=== PATIENT | female | born 1940 | race Caucasian/White ===

== ENCOUNTER 2021-08-21 19:18 | Emergency (ER) | payer MEDICARE, SELFPAY ==
[2021-08-21 19:27] VITALS: BP 148/89; PULSE 102; RESP 16; TEMP 37.3; O2SAT 100
[2021-08-22 00:57] LABS: Basophils Absolute Auto 0.1 K/mm3 (0.0-0.1); Basophils Percent Auto 0.4 % (0.2-1.2); Eosinophils Percent Auto 0.2 % (0-4.4); Hematocrit 39.4 % (37.0-47.0); Hemoglobin 12.7 g/dL (12.0-15.0); Immature Granulocyte Absolute 0.06 K/mm3 (0.00-0.031); Immature Granulocyte Percent A 0.5 % (0-0.5); Lymphocytes Absolute Auto 2.47 K/mm3 (0.9-3.2); Lymphocytes Percent Auto 19.2 % (18.3-44.2); Mean Corpuscular HGB Conc 32.2 g/dl (32-36); Mean Corpuscular Hemoglobin 30.2 pg (26-34); Mean Corpuscular Volume 93.8 fl (80-100); Monocytes Absolute Auto 1.2 K/mm3 (0.1-0.6); Monocytes Percent Auto 9.5 % (2.6-8.5); Neutrophils Absolute Auto 9.1 K/mm3 (1.3-6.7); Neutrophils Percent Auto 70.2 % (45.5-73.1); Platelet Count Result 263 k/mm3 (150-375); Red Cell Distribution Width 13.5 % (11.5-14.5); White Blood Count 12.9 K/mm3 (4.5-10.0)
[2021-08-22 01:11] LABS: Anion Gap 9 mmol/L (8-16); Blood Urea Nitrogen 17 mg/dL (7-17); CRP 7.8 mg/dL (<1.0); Calcium 9.9 mg/dL (8.4-10.2); Carbon Dioxide 35 mmol/L (22-30); Chloride 95 mmol/L (98-107); Estimated CRCL calculation 43 ml/min; Estimated Glomerular Filt Rate 43; Glucose 131 mg/dL (65-110); Sodium 139 mmol/L (137-145); Uric Acid 10.5 mg/dL (2.5-7.5)
--- NOTE | 2021-08-22 01:26 | ED.EXTPRO ---
HPI - Extremity Problem General Chief complaint: Extremity Problem,Nontraumatic Stated complaint: feet pain Time Seen by Provider: 08/21/21 22:24 Source: patient and family Mode of arrival: ambulatory Limitations: no limitations History of Present Illness HPI Narrative: 81-year-old with a history of gout, hypertension here with complaints of pain , swelling and redness to the left foot for past 2 days. She denies any fever or chills. No history of trauma. She states the redness is markedly reduced from yesterday. Complaint: extremity pain Onset (ago): day(s) (2) Pain Consistency: constant Location: left Quality: aching Radiation: none Relieving factors: nothing Exacerbating factors: nothing Associated symptoms: denies other symptoms Related Data Home Medications Medication Instructions Recorded Confirmed apixaban 5 mg tablet 5 mg PO BID 07/04/20 08/08/21 cholecalciferol (vitamin D3) 25 25 mcg PO DAILY 07/04/20 08/08/21 mcg (1,000 unit) capsule cyanocobalamin (B12)-cobamamide lozenge SUBLINGUAL 07/04/20 08/08/21 5,000 mcg-100 mcg sublingual lozenge metoprolol succinate 100 mg 100 mg PO DAILY 07/04/20 08/08/21 tablet,extended release 24 hr Allergies Allergy/AdvReac Type Severity Reaction Status Date / Time meperidine Allergy Mild PT REFUSES Verified 08/21/21 22:16 DEMEROL R/T FAMILY HX. naproxen Allergy Mild DECREASED Verified 08/21/21 22:16 KIDNEY FUNCTION Review of Systems Review of Systems: All systems reviewed & are unremarkable except as noted in HPI and below Constitutional: Constitutional: Reports no additional constitutional complaints Eyes: Eyes: Reports no additional eye complaints ENT: Reports system reviewed and no additional complaints, except as documented Cardiovascular: Cardiovascular: Reports no additional cardiovascular complaints Respiratory: Respiratory: Reports no additional respiratory complaints Musculoskeletal: Musculoskeletal: Reports as per HPI Integumentary/Breasts: Skin/Breast: Reports system reviewed and no additional complaints, except as docu [facility] Past Medical History Medical History Chronic kidney disease, stage 4 (severe) Chronic obstructive pulmonary disease, unspecified Essential hypertension Gastroesophageal reflux disease without esophagitis Glaucoma Gout H/O renal cell cancer History of endometrial cancer History of nephrectomy, unilateral Mixed hyperlipidemia Obstructive sleep apnea (adult) (pediatric) Paroxysmal atrial fibrillation Primary hyperparathyroidism Sciatica, left side Ventral hernia without obstruction or gangrene Vitamin B12 deficiency Vitamin D deficiency Surgical History Surgical History History of hysterectomy for cancer Family History Family History Sibling Hypertension Family history of congestive heart failure Mother Family history of congestive heart failure Other Cerebrovascular accident Diabetes mellitus Family history of atrial fibrillation Family history of coronary artery disease Family history of obesity Social History Social History Second hand tobacco smoke exposure: No Alcohol intake: never Substance use: never Substance use type: does not use Gender identity (if verbalized by the patient): Female Exam Narrative: GENERAL: Well-appearing, well-nourished, and in no acute distress. HEAD: Normocephalic, atraumatic. EYES: PERRLA and EOMI NECK: Supple. CHEST: Clear to auscultation. No respiratory distress. HEART: Regular rate and rhythm. No murmur heard. Normal peripheral pulses. ABDOMEN: Soft, nontender, nondistended, normal active bowel sounds. EXTREMITIES: Normal range of motion. No edema. Examination of the left foot the dorsum o
[2021-08-22] MEDS: predniSONE 20 MG TABLET 60 MG PO (01:33)
[2021-08-22 01:35] VITALS: BP 137/89; PULSE 78; RESP 18; O2SAT 100
== END 2021-08-22 01:48 | disposition home or self-care (01) ==
PROVIDERS: Emergency Provider Family Medicine; PCP Family Medicine
DX: M10.9 Gout, unspecified (principal); I12.9 Hypertensive chronic kidney disease with stage 1 through stage 4 chronic kidney disease, or unspecified chronic kidney disease; N18.4 Chronic kidney disease, stage 4 (severe); J44.9 Chronic obstructive pulmonary disease, unspecified; K21.9 Gastro-esophageal reflux disease without esophagitis; G47.30 Sleep apnea, unspecified; I48.91 Unspecified atrial fibrillation
CPT/HCPCS: 36415; 80048; 84550; 85025; 86140; 99283; J7512

== ENCOUNTER 2023-04-01 21:03 | Emergency (ER) | payer MEDICARE, SELFPAY ==
--- NOTE | ~2023-04-01 | XR_ITS ---
EXAMINATION: XR elbow LT 2V DATE: 04/02/2023 01:50 INDICATION: Left elbow pain and swelling. TECHNIQUE: 2 views of left elbow were obtained. COMPARISON: None. FINDINGS: Bone alignment is normal. No fracture. Joint spaces are normal. No elbow joint effusion. Th ere is soft tissue swelling overlying olecranon. IMPRESSION: 1. Soft tissue swelling overlying olecranon, consistent with olecranon bursitis. Reviewed, dictated and finalized at location A. IMPRESSION: 1. Soft tissue swelling overlying olecranon, consistent with olecranon bursitis .
[2023-04-01 21:25] VITALS: BP 154/94; PULSE 68; RESP 20; TEMP 36.4; O2SAT 96
[2023-04-02 00:43] VITALS: BP 186/104; PULSE 74; RESP 15; O2SAT 98
--- NOTE | 2023-04-02 01:27 | ED.GENADULT ---
HPI - General Adult General Chief complaint: Extremity Injury, Upper Stated complaint: left elbow pain Time Seen by Provider: 04/02/23 01:10 History of Present Illness HPI narrative: Patient is an 82-year-old female here for evaluation of atraumatic left elbow pain x12 hours. Patient states that the pain came on without any trigger. Has been developing throughout the day. Took a tramadol without relief of her symptoms. Denies fevers, chills, nausea or vomiting. She does have a history of gout. Related Data Home Medications Medication Instructions Recorded Confirmed apixaban 5 mg tablet (Eliquis) 5 mg PO BID 07/04/20 11/27/22 cholecalciferol (vitamin D3) 25 25 mcg PO DAILY 07/04/20 11/27/22 mcg (1,000 unit) capsule metoprolol succinate 100 mg 100 mg PO DAILY 07/04/20 11/27/22 tablet,extended release 24 hr cyanocobalamin (B12)-cobamamide mery sublingual 2XW 08/29/21 11/27/22 5,000 mcg-100 mcg sublingual lozenge (B12) Allergies Allergy/AdvReac Type Severity Reaction Status Date / Time meperidine Allergy Mild PT REFUSES Verified 04/01/23 21:04 DEMEROL R/T FAMILY HX. naproxen Allergy Mild DECREASED Verified 04/01/23 21:04 KIDNEY FUNCTION Review of Systems Review of Systems: Gen.: Denies fevers or chills Eyes: Denies eye pain or visual change ENT: Denies congestion Respiratory: Denies shortness of breath or cough CV: Denies chest pain or palpitations GI: Denies abdominal pain nausea, emesis or diarrhea denies burning, urgency, frequency or hematuria Musculoskeletal: Reports left elbow pain Neuro: Denies numbness, tingling, weakness or focal weakness Skin: Denies rash Except as documented, all other systems reviewed and negative FOR[facility]LY [facility], [facility] Past Medical History Medical History Chronic kidney disease, stage 4 (severe) Chronic obstructive pulmonary disease, unspecified Essential hypertension Gastroesophageal reflux disease without esophagitis Glaucoma Gout H/O renal cell cancer History of endometrial cancer History of nephrectomy, unilateral Mixed hyperlipidemia Obstructive sleep apnea (adult) (pediatric) Paroxysmal atrial fibrillation Prediabetes Primary hyperparathyroidism Sciatica, left side Ventral hernia without obstruction or gangrene Vitamin B12 deficiency Vitamin D deficiency Surgical History Surgical History History of hysterectomy for cancer Family History Family History Sibling Hypertension Family history of congestive heart failure Mother Family history of congestive heart failure Other Cerebrovascular accident Diabetes mellitus Family history of atrial fibrillation Family history of coronary artery disease Family history of obesity Social History Social History (Updated 11/27/22 @ 11:09 by Ligia Mcguire [facility]) Smoking status: Never smoker Second hand tobacco smoke exposure: No Alcohol intake: never Substance use: never Substance use type: does not use Lack of Transportation: No Lack of Food: Never True Current Housing: I Have Housing Concerned About Future Housing: No Difficulty Paying Gas/Electric Bills: No Difficulty Paying for Meds: No Currently Unemployed: No Education: High School Diploma/GED Difficulty w/ Childcare or Family Care: No Living arrangements: alone Occupation/Education: retired Gender identity (if verbalized by the patient): Female Spiritual care concerns: No Agree to blood products: Yes Exam Narrative: APPEARANCE: Well appearing, no pain in distress, well-nourished. Head: Normocephalic and atraumatic. EYES: PERRLA/EOMI, conjunctivae clear NOSE: No nasal drainage EARS: External ear normal in appearance THROAT: Oropharynx is clear. Mucous membranes are moist. NECK: Supple. No mohsen
[2023-04-02] MEDS: HYDROcodone/acetaminophen (*CRX) 5-325 MG TABLET 1 TAB PO (01:36)
[2023-04-02 02:36] VITALS: BP 176/98; PULSE 72; RESP 18; TEMP 36.6; O2SAT 97
== END 2023-04-02 02:37 | disposition home or self-care (01) ==
PROVIDERS: Emergency Provider Physician Assistant; PCP Family Medicine
DX: M70.22 Olecranon bursitis, left elbow (principal); I48.0 Paroxysmal atrial fibrillation; I12.9 Hypertensive chronic kidney disease with stage 1 through stage 4 chronic kidney disease, or unspecified chronic kidney disease; N18.4 Chronic kidney disease, stage 4 (severe); J44.9 Chronic obstructive pulmonary disease, unspecified; K21.9 Gastro-esophageal reflux disease without esophagitis; H40.9 Unspecified glaucoma; M10.9 Gout, unspecified; E78.2 Mixed hyperlipidemia; G47.33 Obstructive sleep apnea (adult) (pediatric); R73.03 Prediabetes; E21.0 Primary hyperparathyroidism; E55.9 Vitamin D deficiency, unspecified; E53.8 Deficiency of other specified B group vitamins; Z90.5 Acquired absence of kidney; Z85.528 Personal history of other malignant neoplasm of kidney; Z85.42 Personal history of malignant neoplasm of other parts of uterus; Z79.01 Long term (current) use of anticoagulants
CPT/HCPCS: 73070; 99283; A9270

== ENCOUNTER 2023-07-02 11:04 | Outpatient (CLI) | payer MEDICARE, SELFPAY ==
--- NOTE | ~2023-07-02 | XR_ITS ---
XR chest 2V 07/02/2023 11:21 Indication: Shortness of breath Procedure: 2 view chest Comparison: 04/07/2009 Findings: Cardiomegaly. Pacemaker leads in expected position. No focal air space disease, pulmonary e saul, pleural effusion or suspected pneumothorax. No acute osseous abnormality. The lungs are hyperin flated which is consistent with, but not diagnostic of chronic obstructive pulmonary disease. Impression: 1: No acute cardiopulmonary disease. Reviewed, dictated and finalized at location L. Impression: 1: No acute cardiopulmonary disease.
== END 2023-07-02 11:05 | disposition home or self-care (01) ==
PROVIDERS: PCP Family Medicine; Visit Provider Nurse Practitioner Family
DX: R06.02 Shortness of breath (principal)
CPT/HCPCS: 71046